=== PATIENT | female | born 1980 | race Native Hawaiian/Other Pacific Islander ===

== ENCOUNTER 2019-02-04 11:03 | Emergency (ER) | payer OTHER ==
--- NOTE | 2019-02-04 11:11 | Emergency Department Report ---
Blank Doc - Documentation Documentation: 38-year-old female that presents with right wrist pain s/p fall. This initial assessment/diagnostic orders/clinical plan/treatment(s) is/are subject to change based on patient's health status, clinical progression and re- assessment by fellow clinical providers in the ED. Further treatment and workup at subsequent clinical providers discretion. Patient/guardians urged not to elope from the ED as their condition may be serious if not clinically assessed and managed. Initial orders include: 1- Patient sent to [facility] for further evaluation and treatment 2- xray
[2019-02-04 11:12] VITALS: BP 106/52
--- NOTE | 2019-02-04 11:57 | XRay Report ---
RIGHT WRIST 3 VIEW(S) INDICATION / CLINICAL INFORMATION: wrist pain after a fall COMPARISON: None available. FINDINGS: BONES / JOINT(S): No acute fracture or subluxation. No significant arthritis. SOFT TISSUES: No significant abnormality. ADDITIONAL FINDINGS: None. Signer Name: Dnuia Hansen MD Signed: 02/04/2019 11:53 AM Workstation Name: [id number]
--- NOTE | 2019-02-04 13:21 | Emergency Department Report ---
Upper Extremity - HPI Chief Complaint: Extremity Injury, Upper Stated Complaint: INJURED WRIST Time Seen by Provider: 02/04/19 11:10 Upper Extremity: Right Wrist Occurred When: >5 Days (1 week) Symptoms: Yes Pain with Movement, No Deformity, No Limited Range of Movement, No Numbness, No Weakness, No Swelling, No Bruising/Ecchymosis, No Laceration or Abrasion Other History: 38-year-old -[place] female presents to the emergency room complaining of right wrist pain for one week. Patient reports that she had a fall a week ago and now having right wrist pain. Patient states she has taken ibuprofen and Tylenol Aleve with no resolution of pain. 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 ED Review of Systems ROS: Stated complaint: INJURED WRIST Other details as noted in HPI Comment: All other systems reviewed and negative ED Past Medical Hx - Past Medical History Previous Medical History?: Yes Hx Seizures: Yes (epilepsy) - Surgical History Past Surgical History?: No - Social History Smoking Status: Never Smoker Substance Use Type: Alcohol, Marijuana - Medications Home Medications: Home Medications Medication Instructions Recorded Confirmed Last Taken Type Ibuprofen [Motrin 800 MG tab] 800 mg PO Q8HR PRN #30 tablet 02/04/19 Unknown Rx Upper Extremity Exam - Exam General: Vital signs noted. No distress. Alert and acting appropriately. Head and Torso: No HEENT Abnormality, No Neck Tenderness, No Chest/Lungs Abnormality, No Abdominal Tenderness, No Back Tenderness Shoulder Exam: Yes Normal Range of Motion in Shoulder, No Shoulder Tenderness, No Clavicle Tenderness, No Shoulder Deformity, No AC Joint Tenderness Arm Exam: No Arm/Humerus Tenderness, No Arm Deformity Elbow: No Elbow Tenderness, No Normal Range of Motion in Elbow, No Elbow Deformity Wrist: Yes Wrist Tenderness, Yes Normal ROM in Wrist, No Wrist Deformity, No Snuffbox Tenderness, No Pain with Axial Thumb Compression Hand: Yes Hand Tenderness, Yes Normal ROM in Digit(s), No Hand Deformity, No Digit Tenderness, No Digit(s) Deformity, No Tendon Dysfunction CMS Exam: No Broken Skin, No Normal Distal Pulses, No Normal Capillary Refill, No Normal Distal Sensation ED Course Vital Signs 02/04/19 11:10 Temperature 97.6 F Pulse Rate 77 Respiratory 16 Rate Blood Pressure 106/52 [Left] O2 Sat by Pulse 98 Oximetry ED Medical Decision Making - Radiology Data Radiology results: report reviewed Patient: ALBERTO HODGE MR#: [id number] : 1980 Acct:[id number] Age/Sex: 38 / F ADM Date: 02/04/19 Loc: ED Attending Dr: Ordering Physician: BUFFY MCGREGOR NP Date of Service: 02/04/19 Procedure(s): XR wrist 3+V RT Accession Number(s): [id number] cc: BUFFY MCGREGOR NP Fluoro Time In Minutes: RIGHT WRIST 3 VIEW(S) INDICATION / CLINICAL INFORMATION: wrist pain after a fall COMPARISON: None available. FINDINGS: BONES / JOINT(S): No acute fracture or subluxation. No significant arthritis. SOFT TISSUES: No significant abnormality. ADDITIONAL FINDINGS: None. Signer Name: Dunia Hansen MD Signed: 02/04/2019 11:53 AM Workstation Name: [id number] Transcribed By: DT Dictated By: Olivier Hansen MD Electronically Authenticated By: Olivier Hansen MD Signed Date/Time: 02/04/19 1153 DD/ 1152 TD/TT: - Medical Decision Making 38-year-old -[place] female presents to the emergency room complaining of right wrist pain for one week. Patient reports that she had a fall a week ag o and now having right wrist pain. Patient states she has taken ibuprofen and Tylenol Aleve with no resolution of pain. 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 X-ray of wrist is negative for any fractures. Discussed the patient's is most likely due to carpal tunnel secondary to her job as a chef teacher. Discussed the patient we'll give her a dose of prednisone here she can take ibuprofen and to follow up orthopedics. Patient verbalized understanding Critical care attestation.: If time is entered above; I have spent that time in minutes in the direct care of this critically ill patient, excluding procedure time. ED Disposition Clinical Impression: Carpal tunnel syndrome of right wrist Disposition: DC-01 TO HOME OR SELFCARE Is pt being admited?: No Does the pt Need Aspirin: No Condition: Stable Prescriptions: Ibuprofen [Motrin 800 MG tab] 800 mg PO Q8HR PRN #30 tablet PRN Reason: Pain , Severe (7-10) Referrals: PAYAL MCCANN MD [Staff Physician] - 3-5 Days [facility] [Provider Group] - 3-5 Days Forms: Work/School Release Form(ED)
[2019-02-04] MEDS ORDERED: DELTASONE PO ONE (13:38)
== END 2019-02-04 14:07 | disposition home or self-care (01) ==
LOC: ED 11:03
DX: G56.01 Carpal tunnel syndrome, right upper limb (principal); G40.909 Epilepsy, unspecified, not intractable, without status epilepticus; F12.90 Cannabis use, unspecified, uncomplicated; Z79.899 Other long term (current) drug therapy
CPT/HCPCS: 29125; 73110; 99283; J7512